=== PATIENT | male | born 1950 ===

== ENCOUNTER → 2021-10-12 | Outpatient (CLI) | payer MEDICARE ==
[~2021-10-12] MED LIST: FOLI1; IBUP400; IBUP800; MULVITA; NEW CHOLESTEROL MED; OXYACE10 PO; OXYACE5C; OXYACE5T PO; ROSU10TA; ZOLP5
[2021-10-12 12:32] LABS: Albumin, Blood 3.9 g/dL (3.4-5.0); Albumin/Globulin Ratio 1.1 (0.8-1.8); Bun/Creatinine Ratio 21.2 (12.0-20.0); Creatinine, Blood 0.9 mg/dL (0.60-1.20); Globulin, Blood 3.5 g/dL (2.2-4.0); Potassium, Blood 3.7 mmol/L (3.5-5.5); Total Protein, Blood 7.4 g/dL (6.4-8.2)
== END | disposition home or self-care (01) ==
LOC: LAB 11:20 → LAB SHORT 11:20
PROVIDERS: Nurse Practitioner
DX: R50.9 Fever, unspecified (principal)
CPT/HCPCS: 80053

== ENCOUNTER 2025-02-27 23:38 | Observation (INO) | payer MEDICARE ==
[~2025-02-27] VITALS: Ht 175.3 cm; Wt 81.7 kg
[2025-02-28] MEDS ORDERED: Dexamethasone Sod Phos 10 MG/ML 1ML VIAL IV ONE (00:55)
[2025-02-28 01:23] LABS: BASOPHILS ABSOLUTE AUTO 0.03 K/mm3 (0.00-0.23); BASOPHILS PERCENT AUTO 0 % (0-2); EOSINOPHILS ABSOLUTE AUTO 0.06 K/mm3 (0.00-0.68); EOSINOPHILS PERCENT AUTO 1 % (0-6); Hematocrit 36.5 % (37.0-53.0); Hemoglobin 12.6 g/dL (13.5-17.5); IMMATURE GRAN ABSOLUTE AUTO 0.04 K/mm3 (0.00-0.10); IMMATURE GRAN PERCENT AUTO 1 % (0-1); LYMPHOCYTES ABSOLUTE AUTO 1.03 K/mm3 (0.84-5.20); LYMPHOCYTES PERCENT AUTO 13 % (21-46); MONOCYTES ABSOLUTE AUTO 0.57 K/mm3 (0.16-1.47); MONOCYTES PERCENT AUTO 7 % (4-13); Mean Corpuscular HGB Conc 34.5 g/dL (31.5-36.5); Mean Corpuscular Volume 97 fL (80-100); NEUTROPHILS ABSOLUTE AUTO 6.44 K/mm3 (1.96-9.15); NEUTROPHILS PERCENT AUTO 79 % (41-73); NRBC ABSOLUTE 0.00 K/mm3 (0.00-0.02); NRBC Auto 0.0 /100 WBC (0.0-0.2); Platelet Count 134 K/mm3 (150-400); RDW Coefficient Variation 13.0 % (11.7-14.2); RDW Standard Deviation 45.9 fL (35.1-46.3)
[2025-02-28 01:41] LABS: Alanine Aminotransfer (ALT/SGP 43.0 U/L (12-78); Albumin, Blood 3.6 g/dL (3.4-5.0); Albumin/Globulin Ratio 1.1 (0.8-1.8); Anion Gap 12.0 mmol/L (3-11); Aspartate Aminotrans (AST/SGOT 46.0 U/L (12-37); Bilirubin, Total 0.4 mg/dL (0.1-1.0); Blood Urea Nitrogen 17.0 mg/dL (8-24); CO2, Blood 23.0 mmol/L (21-32); Calcium, Blood 8.8 mg/dL (8.5-10.1); Chloride, Blood 109.0 mmol/L (98-108); Creatinine, Blood 0.84 mg/dL (0.60-1.20); Globulin, Blood 3.4 g/dL (2.2-4.0); Glucose, Blood 108.0 mg/dL (70-99); Potassium, Blood 4.7 mmol/L (3.5-5.5); Sodium, Blood 139.0 mmol/L (136-145); Total Protein, Blood 7.0 g/dL (6.4-8.2)
[2025-02-28] MEDS ORDERED: Crestor40 MG PO (03:52)
[2025-02-28] MEDS ORDERED: ELIQUIS5 M2 PO (03:57)
[2025-02-28] MEDS ORDERED: METO50ER PO (03:59)
[2025-02-28] MEDS ORDERED: FLU VACC TS2025(65UP)/MF59C/PF 45 MCG/0.5 ML SYRINGE IM SCH (04:40)
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
--- NOTE | 2025-02-28 06:44 | NUR ---
ORDERED CONSULT [facility] ENT RE THROAT. CALL WAS PLACED TO WORKERS COMPENSATION CLAIMS EXAMINER NUMBER, "[id number]" STATED HE WOULD NOTIFY DR LEDESMA AT O700 FOR PT ASSESSMENT.
[2025-02-28] MEDS ORDERED: ALLO100 PO (07:16)
[2025-02-28] MEDS ORDERED: GEMTESA75 MG PO (07:18)
[2025-02-28] MEDS ORDERED: OLME20 (07:19)
[2025-02-28 07:23] VITALS: BP 150/86
[2025-02-28] MEDS ORDERED: Multivitamins 1 Tab PO SCH (09:00)
[2025-02-28] MEDS ORDERED: Enoxaparin 40 MG/0.4 ML SYR SC SCH (09:00)
[2025-02-28] MEDS ORDERED: Folic Acid 1 MG TAB PO SCH (09:00)
[2025-02-28] MEDS ORDERED: Oxymetazoline 0.05% Nasal Relief Spray 15mL BTL ONE (11:55)
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
== END 2025-02-28 17:30 | disposition home or self-care (01) ==
LOC: ER 23:38 → MEDS 23:39 → ENPENDDIS 02-28 15:01 → MEDS 02-28 17:30
PROVIDERS: Emergency Medicine; ADMIT Internal Medicine
DX: M54.2 Cervicalgia (principal); R49.0 Dysphonia; J98.6 Disorders of diaphragm; Y04.8XXA Assault by other bodily force, initial encounter; I48.0 Paroxysmal atrial fibrillation; E78.5 Hyperlipidemia, unspecified; I10 Essential (primary) hypertension; Z79.01 Long term (current) use of anticoagulants; Z79.899 Other long term (current) drug therapy
CPT/HCPCS: 70491; 70496; 70498; 80053; 85025; 96361; 96374; 96375; 99285; A9270; G0378; J1100; Q9967